=== PATIENT | male | born 1970 | race Caucasian/White ===

== ENCOUNTER → 2020-02-28 15:47 | Outpatient (CLI) | payer OTHER, SELFPAY ==
--- NOTE | ~2020-02-28 | XR_ITS ---
EXAMINATION: XR wrist LT min 3V EXAM DATE: 02/28/2020 16:08 INDICATION: Left wrist pain. Patient States He Is Limited On How Far He Can Extend His First Digit F rom The Mcp Joint, He Has Pain To That Area Depending On How He Moves His 1 St Digit X 2 Weeks., No K nown Injury TECHNIQUE: Left wrist frontal, frontal with ulnar deviation, oblique and lateral projections obtained and reviewed. There is no prior study for comparison. FINDINGS: Left wrist scapholunate joint space is maintained. There are no acute fractures or dislocat ions identified. There is no subcutaneous gas. The soft tissue is unremarkable. There are no radi opaque foreign bodies. There are no bony erosions identified. IMPRESSION: 1. Unremarkable left wrist exam. Reviewed, dictated and finalized at location A. [employer]
== END ==
PROVIDERS: Visit Provider Chiropractor Rehabilitation
DX: M25.532 Pain in left wrist (principal)
CPT/HCPCS: 73110

== ENCOUNTER → 2020-03-10 07:30 | Outpatient (CLI) | payer OTHER, SELFPAY ==
--- NOTE | ~2020-03-10 | MR_ITS ---
EXAMINATION: MR wrist LT wo con DATE: 03/10/2020 08:23 INDICATION: Left wrist pain and limited range of motion to the first digit TECHNIQUE: Magnetic resonance imaging (MRI) of the left wrist was performed without intravenous contr ast. Sequences performed include axial PD-weighted FSE and PD-weighted FS FSE, coronal PD-weighted FS FSE and T1-weighted SE, and sagittal PD-weighted FS FSE and PD-weighted FSE. COMPARISON: None FINDINGS: Intrinsic ligaments: The lunotriquetral ligament is normal. There is a small perforation at the central membranous portion of the scapholunate ligament which is of doubtful clinical significance. The dorsal and volar compon ents of the scapholunate ligament are normal. Normal. Triangular fibrocartilage complex (TFCC): The triangular fibrocartilage including its foveal and styloid attachments as well as the dorsal and volar radioulnar ligaments are normal. The ulnar collateral ligament, ulnotriquetral ligament and men iscal homologue are normal. Extensor wrist: There is fusiform thickening and mild increased signal of the extensor pollicis brevis tendon consist ent with moderate tendinopathy. The thickening of the tendon centered immediately deep to the marker indicating the region of concern where there is also a linear fluid signal intensity split tear of th e tendon as well as surrounding tenosynovitis. There is similar mild tendinopathy and longitudinal sp lit tearing of the extensor carpi ulnaris tendon centered at the level of the tip of the ulnar styloi d process. No associated tenosynovitis. The remaining extensor tendons are normal. Flexor wrist: The flexor tendons of the wrist are normal. No abnormality in the carpal tunnel with normal median n erve. Guyon's canal: Guyon's canal including the ulnar nerve and artery are normal. Bones/other: Osteoarthritis of moderate severity at the triscaphe joint and mild at the wrist, midcarpal and trisc aphe joints. Normal marrow signal. No fracture, avascular necrosis or pathologic marrow replacing pro cess. IMPRESSION: 1. De Quervain's tenosynovitis in the first dorsal compartment which appears associated primarily wit h the extensor pollicis brevis tendon which demonstrates moderate tendinopathy and longitudinal split tearing. This immediately underlies the marker indicating the region of maximal pain. 2. Additional mild tendinopathy and longitudinal split tear of the extensor carpi ulnaris tendon. 3. 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 Reviewed, dictated and finalized at location A. [employer] MAN IMPRESSION: 1. De Quervain's tenosynovitis in the first dorsal compartment which appears as sociated primarily with the extensor pollicis brevis tendon which demonstrates moderate tendinopathy and longitudinal split tearing. This immediately underlie s the marker indicating the region of maximal pain. 2. Additional mild tendinopathy and longitudinal split tear of the extensor car pi ulnaris tendon. 3. 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
== END ==
PROVIDERS: Visit Provider Chiropractor Rehabilitation
DX: M25.532 Pain in left wrist (principal); M65.4 Radial styloid tenosynovitis [de Quervain]; S66.912A Strain of unspecified muscle, fascia and tendon at wrist and hand level, left hand, initial encounter; M19.032 Primary osteoarthritis, left wrist
CPT/HCPCS: 73221

== ENCOUNTER 2023-08-31 13:44 | Emergency (ER) | payer OTHER, SELFPAY ==
[2023-08-31 13:52] VITALS: BP 129/84; PULSE 60; RESP 20; TEMP 36.7; O2SAT 95
--- NOTE | 2023-08-31 14:13 | ED.GENADULT ---
HPI - General Adult General Chief complaint: Skin/Abscess/Foreign Body Stated complaint: rash on stomach Time Seen by Provider: 08/31/23 14:13 Source: patient, RN notes reviewed and old records reviewed Mode of arrival: ambulatory Limitations: no limitations History of Present Illness HPI narrative: 52-year-old male to [facility] with complaint of rash for 2 weeks. Patient states the rash initially on left arm and then on right arm and spread to abdomen 4 days ago. Patient endorses itching. Patient denies allergies, pain, exposure to new products at home or at work, environmental allergies, recent illness, fever, pertinent medical history, shortness of breath, cough, difficulty breathing. Related Data Home Medications Medication Instructions Recorded Confirmed cabergoline 0.5 mg tablet 0.5 mg PO WEEKLY 08/31/23 08/31/23 esomeprazole magnesium 40 mg 40 mg PO DAILY 08/31/23 08/31/23 capsule,delayed release glimepiride 2 mg tablet 2 mg PO DAILY 08/31/23 08/31/23 metoprolol succinate 100 mg 100 mg PO DAILY 08/31/23 08/31/23 tablet,extended release 24 hr torsemide 10 mg tablet 10 mg PO DAILY 08/31/23 08/31/23 Allergies Allergy/AdvReac Type Severity Reaction Status Date / Time amlodipine AdvReac Unknown Verified 08/31/23 14:12 Review of Systems Review of Systems: All systems reviewed & are unremarkable except as noted in HPI and below Constitutional: Constitutional: Reports no additional constitutional complaints Eyes: Eyes: Reports no additional eye complaints ENT: Reports system reviewed and no additional complaints, except as documented Cardiovascular: Cardiovascular: Reports no additional cardiovascular complaints, Denies chest pain and Denies dyspnea Respiratory: Respiratory: Reports no additional respiratory complaints, Denies cough and Denies dyspnea Musculoskeletal: Musculoskeletal: Reports no additional musculoskeletal complaints Neurologic: Reports system reviewed and no additional complaints, except as documented Psychiatric: Psychiatric: Reports no additional psychiatric complaints PMFSH Comments At the time of my signature, I reviewed and agree with the nursing past medical, surgical, social, and family history. There is no relevant family history pertinent to the patient complaint. Exam Const: General: cooperative, no acute distress, alert, uncomfortable and well nourished Nutritional Appearance: well nourished Orientation/consciousness: patient oriented x3 Limitations: no limitations HENMT: Head: normal to inspection Ears: external ears normal Face/Nose/Sinus: Normal external nose present, Normal nares present, normal facial exam, No erythema and No edema Face and sinus: normal facial exam, no erythema and no edema Mouth: Yes Normal oral and palatal mucosa present Eyes: General: appearance normal, both eyes and all related structures Neck: Neck: normal visual inspection, full ROM and no meningeal signs Lymphatic: no lymphadenopathy noted and no lymphedema noted Chest: Chest palpation & inspection: normal inspection of the chest Resp: Effort & Inspection: normal respiratory effort and able to speak in complete sentences Auscultation: clear to auscultation bilaterally Cardio: Jugular venous distension: no JVD Rate: regular rate Rhythm: regular rhythm Back/Spine/Pelvis: Cervical Spine: cervical ROM normal Skin: General skin exam: rashes ( erythematous, pruritic rash noted to bilateral arms and abdomen) Neuro: General: patient oriented x3, gait normal, moves all extremities and no meningeal signs Speech: normal speech Gait exam (Neuro): Normal gait present Extrem: General: normal to inspection, full ROM and capillary refill normal Psych: Appearance: grossly normal and well kempt Course Course Emergency Course: Some parts of this dictation were generated by voice recognition software and may contain typographical and/or grammatical inaccuracies. Level of Care: Express
== END 2023-08-31 14:30 | disposition home or self-care (01) ==
PROVIDERS: Emergency Provider Nurse Practitioner Family; PCP Internal Medicine Infectious Disease
DX: L25.9 Unspecified contact dermatitis, unspecified cause (principal); I10 Essential (primary) hypertension; K21.9 Gastro-esophageal reflux disease without esophagitis; E11.9 Type 2 diabetes mellitus without complications
CPT/HCPCS: 99213; G0463